=== PATIENT | female | born 1995 | race Caucasian/White ===

== ENCOUNTER 2021-03-04 12:37 | Outpatient (CLI) | payer OTHER, SELFPAY ==
--- NOTE | 2021-03-04 12:25 | DI.RAD_ITS ---
Exam(s) XR HAND RT COMPLETE XR WRIST RT COMPL NAVICULAR EXAM: XR WRIST RT COMPL NAVICULAR and XR hand right complete CLINICAL HISTORY: crush [id number] M25.539 PAIN IN WRIST. TECHNIQUE: 2D digital imaging was performed of the right hand and wrist. Seven views were obtained. PA, lateral and oblique views were obtained. COMPARISON: No previous for comparison. FINDINGS: BONES: No acute fracture is present. No bony destructive lesion is seen. JOINTS: The carpal bones are normally aligned. SOFT TISSUE: Normal. IMPRESSION: Unremarkable radiographs of the right hand and wrist. DATA REPOSITORY: RADIATION DOSE DELIVERED:
--- NOTE | 2021-03-04 12:25 | DI.RAD_ITS ---
Exam(s) XR HAND RT COMPLETE XR WRIST RT COMPL NAVICULAR EXAM: XR WRIST RT COMPL NAVICULAR and XR hand right complete CLINICAL HISTORY: crush [id number] M25.539 PAIN IN WRIST. TECHNIQUE: 2D digital imaging was performed of the right hand and wrist. Seven views were obtained. PA, lateral and oblique views were obtained. COMPARISON: No previous for comparison. FINDINGS: BONES: No acute fracture is present. No bony destructive lesion is seen. JOINTS: The carpal bones are normally aligned. SOFT TISSUE: Normal. IMPRESSION: Unremarkable radiographs of the right hand and wrist. DATA REPOSITORY: RADIATION DOSE DELIVERED:
== END 2021-03-04 12:57 ==
PROVIDERS: PCP Physician Assistant; Visit Provider Physician Assistant
DX: M25.531 Pain in right wrist (principal); S67.21XA Crushing injury of right hand, initial encounter; M25.541 Pain in joints of right hand
CPT/HCPCS: 73110; 73130